=== PATIENT | male | born 1940 | race Caucasian/White ===

== ENCOUNTER → 2018-04-09 | Outpatient (CLI) | payer MEDICARE, OTHER ==
[~2018-04-09] MED LIST: AC500T PO; ATN50T; CHLO5CAP3 PO; LSNP20T; OLME40TA14 PO; PRX20T; RNT150T; SMV20T PO; UBID100C17 PO; VIT1TABL93 PO; [UNRECOGNIZED DRUG - OTHER] OU
--- NOTE | 2018-04-09 15:59 | Diagnostic Imaging Report ---
INDICATION: Posterior neck pain. TIME OF EXAM: 2:01 PM FINDINGS: Minimal anterolisthesis of C3 on C4 and C4 on C5 as well as C5 on C6 is noted. There is significant degenerative disc disease at C5-C6, C6-C7 and C7-T1 levels with disc space narrowing and marginal spurring. Prevertebral tissues are normal. Odontoid appears intact. No fractures are seen. There is multilevel facet arthropathy. IMPRESSION: Cervical spondylosis and listhesis. No acute bony abnormality is detected. Dictated by: Dictated on workstation # [id number]
== END ==
LOC: RAD 13:21
PROVIDERS: ATTEND Internal Medicine
DX: M47.812 Spondylosis without myelopathy or radiculopathy, cervical region (principal); M41.82 Other forms of scoliosis, cervical region; M99.01 Segmental and somatic dysfunction of cervical region
CPT/HCPCS: 72040

== ENCOUNTER → 2018-04-16 | Outpatient (CLI) | payer MEDICARE, OTHER ==
--- NOTE | 2018-04-16 08:00 | Diagnostic Imaging Report ---
PROCEDURE: MR imaging cervical spine without contrast. TECHNIQUE: Multiplanar, multisequence MR imaging of the cervical spine was performed without contrast. INDICATION: Neck pain. No known injury. COMPARISON: Cervical spine radiographs 04/09/2018. FINDINGS: Bone marrow signal is otherwise unremarkable. No abnormal signal in the cervical spinal cord. The visualized paravertebral soft tissues are unremarkable. C2-C3: Uncovertebral facet arthropathy result in mild bilateral neural foraminal narrowing. No spinal canal narrowing. C3-C4: Posterior disc osteophyte complex and ligamentous hypertrophy results in mild spinal canal narrowing. Uncovertebral facet arthropathy result in advanced right and moderate left neural foraminal narrowing. C4-C5: No substantial spinal canal narrowing. Uncovertebral facet arthropathy result in advanced right and moderate left neural foraminal narrowing. C5-C6: Posterior disc osteophyte complex results in mild spinal canal narrowing. Uncovertebral facet arthropathy result in moderate right and mild left neural foraminal narrowing. C6-C7: Posterior disc ossified complex, asymmetric to the left, results in moderate to advanced spinal canal narrowing where there is flattening of the ventral left cervical cord. There is advanced left and moderate right neural foraminal narrowing. C7-T1: Posterior disc ossified complex results in moderate spinal canal narrowing. There is advanced left and moderate right neural foraminal narrowing. IMPRESSION: 1. Spondylotic changes result in multilevel spinal canal narrowing which is greatest at C6-C7. Additional levels detailed above. No abnormal signal in the cervical spinal cord. 2. Diffuse moderate and advanced neural foraminal narrowing as above. 3. No acute osseous findings. Dictated by: Dictated on workstation # [id number]
== END ==
LOC: RAD 06:55
PROVIDERS: ATTEND Internal Medicine
DX: M48.02 Spinal stenosis, cervical region (principal); M48.03 Spinal stenosis, cervicothoracic region; M47.812 Spondylosis without myelopathy or radiculopathy, cervical region; M47.813 Spondylosis without myelopathy or radiculopathy, cervicothoracic region
CPT/HCPCS: 72141

== ENCOUNTER → 2018-05-22 | Outpatient (CLI) | payer MEDICARE, OTHER | LOC: LABNPT 14:00 | PROVIDERS: ATTEND Otolaryngology Otolaryngology/Facial Plastic Surgery | DX: J31.2 Chronic pharyngitis (principal) | CPT/HCPCS: 87070 ==

== ENCOUNTER → 2018-05-26 | Outpatient (CLI) | payer MEDICARE, OTHER ==
[2018-05-26 09:26] LABS: CREATININE SERUM 1.34 MG/DL (0.60-1.30)
== END ==
LOC: RAD 09:00
PROVIDERS: ATTEND Otolaryngology Otolaryngology/Facial Plastic Surgery
DX: J31.2 Chronic pharyngitis (principal)
CPT/HCPCS: 36415; 82565; 84520

== ENCOUNTER 2018-05-27 10:30 | Outpatient (RCR) | payer MEDICARE, OTHER | END 2018-05-28 15:28 | disposition home or self-care (01) | PROVIDERS: ATTEND Internal Medicine | DX: M47.812 Spondylosis without myelopathy or radiculopathy, cervical region (principal) ==

== ENCOUNTER → 2018-05-28 | Outpatient (CLI) | payer MEDICARE, OTHER ==
[2018-05-28] MEDS: IOHEXOL 350 MG/ML 100 ML (OMNIPAQUE 350) VIAL IV ONE (08:04)
[2018-05-28] MEDS: NS 250 ML (IVPB) BAG IV ONE (08:04)
--- NOTE | 2018-05-28 12:19 | Diagnostic Imaging Report ---
Clinical indication: Patient with sore throat for 3 months. Patient had left side cyst removed. Exam: Axial CT scan of the neck soft tissue performed with 75 cc of Omnipaque 350 IV contrast. Sagittal and coronal reformatted images were created. Comparison: MRI of the cervical spine without contrast dated 04/16/2018. Findings: There is a 1.1 cm x 0.4 cm x 1.8 cm (AP x Trans x CC) circumscribed fluid density area which is seen posteriorly and lateral to the region of the vallecula and in the left lateral preepiglottic fat region. This area is seen medial to the hyoid bone. There is no adjacent fat stranding or adjacent bony erosive process. Otherwise, the nasopharynx, oropharynx, hypopharynx, and laryngeal soft tissue structures are otherwise unremarkable. The visualized portion of the oral cavity, tongue, sublingual space, and submandibular regions are unremarkable. There is fatty replacement and atrophy of the bilateral parotid glands. Submandibular glands are unremarkable. Thyroid gland is unremarkable. There is no lymphadenopathy. Visualized portion of the neck vascular structures are grossly unremarkable. The visualized portion of intracranial structures, orbits and paranasal sinuses show no significant abnormality. The visualized upper lung metzger are clear. There is multilevel cervical spine degenerative disease with hypertrophic spurs suggestion that diffuse disc bulges with severe loss of intervertebral disc height at the C6-C7 and C7-T1 levels. There are bilateral uncinate spurs and posterior disc spurs which cause moderate to severe bilateral neural foramen narrowing. There is at least mild to moderate central canal narrowing. There is kyphosis of the brain cervical spine posture. Impression: 1: There is a 1.1 cm circumscribed fluid collection which is within the left side of the supraglottic laryngeal soft tissue which is just lateral to the left vallecula and medial to the hyoid bone. This may represent a vallecular cyst. Residual infectious or inflammatory fluid may be present, but this does not appear to represent an abscess as there is no adjacent fat stranding or rim enhancement. A fluid-filled laryngocele is suspected to be less likely. Lymphangioma also suspected to be less likely. This cystic area causes no significant encroachment upon adjacent. This area was not imaged on the prior MRI of the cervical spine. This area should also be correlated with the area of previous left neck cyst which was removed. 2: Fatty replacement and atrophy of the bilateral parotid glands. 3: Severe cervical spine degenerative disease. 4: The remainder of the neck CT exam is unremarkable for patient's age. Dictated by: Dictated on workstation # [id number]
== END ==
LOC: RAD 07:15
PROVIDERS: ATTEND Otolaryngology Otolaryngology/Facial Plastic Surgery
DX: J38.7 Other diseases of larynx (principal); K11.0 Atrophy of salivary gland; M47.812 Spondylosis without myelopathy or radiculopathy, cervical region; J02.9 Acute pharyngitis, unspecified
CPT/HCPCS: 70491

== ENCOUNTER → 2018-12-20 | Outpatient (CLI) | payer MEDICARE, OTHER ==
[~2018-12-20] VITALS: Ht 177.8 cm; Wt 97.1 kg
[~2018-12-20] MED LIST changes: +CATHETER FLUSH 10 ML SYR IV PRN; +REGADENOSON 0.4 MG/5 ML SYR (LEXISCAN) IV ONE
[2018-12-20 07:54] VITALS: BP 147/90
[2018-12-20 08:21] VITALS: BP 140/83
--- NOTE | 2018-12-23 03:02 | STRESS TEST ---
DATE OF SERVICE: 12/20/2018 NUCLEAR MYOVIEW REPORT REFERRING PHYSICIAN: Dr. Messina. INDICATION: Hypertension. In summary, the patient was injected with 10.54 mCi of technetium-99 Myoview and the resting images were obtained with peak stress level, a 33.0 mCi of technetium-99 Myoview were injected and the stress images were acquired. The test was supervised by Dr. Messina, the resting and stress images were acquired and reviewed in the short axis, horizontal long axis, and vertical long axis views. Review of the images showed diaphragmatic attenuation with typical male pattern, decreased uptake at the inferoapical segment, which is fixed with no significant ischemia. SSS is 4, SDS 1, TID value 1.12. On the gated images, the left ventricle appeared to be normal size with normal contractility. Calculated ejection fraction is 58%. CONCLUSION: 1. Typical male pattern with diaphragmatic attenuation with no significant ischemia or infarction on SPECT images. 2. Normal left ventricular size with normal contractility. Calculated ejection fraction is 58%. Job ID: [id number] DocumentID: [id number] Dictated Date: 12/22/2018 21:10:21 Work Order Clerk Date: 12/23/2018 03:01:20 Dictated By: JOSE DANIEL ORTEGA MD
== END ==
LOC: CARD 06:35
PROVIDERS: ATTEND Internal Medicine
DX: R53.83 Other fatigue (principal)
CPT/HCPCS: 78452; 93017

== ENCOUNTER → 2019-05-24 | Outpatient (CLI) | payer MEDICARE, OTHER ==
[~2019-05-24] MED LIST changes: -CATHETER FLUSH 10 ML SYR IV PRN; -REGADENOSON 0.4 MG/5 ML SYR (LEXISCAN) IV ONE
--- NOTE | 2019-05-24 13:59 | Diagnostic Imaging Report ---
PROCEDURE: CT neck soft tissue with contrast. TECHNIQUE: Multiple contiguous axial images were obtained through the neck after the administration of contrast. Auto Exposure Controls were utilized during the CT exam to meet ALARA standards for radiation dose reduction. INDICATION: Laryngeal mass. COMPARISON: Study compared with exam of 05/28/2018. FINDINGS: Ovoid nodule in the left larynx, supraglottic, deep to the left hyoid bone and at the base of the left aryepiglottic fold measured 1 cm x 0.4 cm, unchanged from prior, it is relatively low in density and vallecular cyst is felt most likely. Again, it is unchanged. No new or aggressive laryngeal lesion. The vocal folds are unremarkable. Prevertebral and retropharyngeal spaces are normal. The nasopharynx and oropharynx are unremarkable. The hypopharynx is unremarkable. No adenopathy. Parotid and submandibular glands are unremarkable. Thyroid is nonfocal. IMPRESSION: Elongated low-density left vallecular nodule, favors a cyst, unchanged from the study of one year earlier. No new or suspicious mass. No lymphadenopathy. Dictated by: Dictated on workstation # [id number]
== END ==
LOC: RAD 07:43
PROVIDERS: ATTEND Otolaryngology
DX: D38.0 Neoplasm of uncertain behavior of larynx (principal)
CPT/HCPCS: 70491

== ENCOUNTER → 2019-05-24 | Outpatient (CLI) | payer MEDICARE, OTHER ==
[2019-05-24 08:28] LABS: CREATININE SERUM 1.37 MG/DL (0.60-1.30)
== END ==
LOC: LAB 07:48
PROVIDERS: ATTEND Otolaryngology
DX: R22.1 Localized swelling, mass and lump, neck (principal)
CPT/HCPCS: 36415; 82565; 84520

== ENCOUNTER 2022-02-07 22:30 | Emergency (ER) | payer MEDICARE, OTHER ==
[~2022-02-07] VITALS: Ht 177 cm; Wt 95.2 kg
[2022-02-07 22:40] VITALS: BP 199/105
[2022-02-07 23:28] LABS: HEMOGLOBIN 14.3 g/dL (13.3-17.7); LYMPHOCYTES # (AUTO) 1.4 10^3/uL (1.0-4.0); MEAN CORPUSCULAR HEMOGLOBIN 33 pg (25-34)
[2022-02-07 23:30] LABS: BASOPHILS % (AUTO) 1 % (0-10); EOSINOPHILS # (AUTO) 0.3 10^3/uL (0.0-0.3); EOSINOPHILS % (AUTO) 8 % (0-10); HEMATOCRIT 41 % (40-54); LYMPHOCYTES % (AUTO) 32 % (12-44); MEAN CORPUSCULAR HGB CONC 35 g/dL (32-36); MEAN CORPUSCULAR VOLUME 94 fL (80-99); MEAN PLATELET VOLUME 9.9 fL (9.0-12.2); MONOCYTES # (AUTO) 0.4 10^3/uL (0.0-1.0); MONOCYTES % (AUTO) 10 % (0-12); NEUTROPHILS # (AUTO) 2.1 10^3/uL (1.8-7.8); NEUTROPHILS % (AUTO) 50 % (42-75); PLATELET COUNT 123 10^3/uL (130-400); WHITE BLOOD COUNT 4.3 10^3/uL (4.3-11.0)
[2022-02-07 23:34] LABS: POTASSIUM 3.9 MMOL/L (3.6-5.0)
[2022-02-07 23:35] LABS: CALCIUM 9.8 MG/DL (8.5-10.1)
[2022-02-07 23:40] LABS: CREATININE SERUM 1.23 MG/DL (0.60-1.30)
--- NOTE | 2022-02-08 20:22 | ED Cardiac General ---
History of Present Illness General Chief Complaint: Cardiac/General Problems Stated Complaint: HIGH BP 188/101 Nursing Triage Note: Pt arrives from home w/ c/o elevated blood pressure. Ambulatory to room, and attached to NIBP and SpO2 monitors. Source: patient Exam Limitations: no limitations History of Present Illness Date Seen by Provider: Feb 07, 2022 Time Seen by Provider: 23:21 Initial Comments This patient was not interviewed or examined by this provider. Orders were placed after review of chief complaint and discussion with the triaging nurse. Due to traumas requiring immediate attention, patient cannot be immediately seen. Blood pressure was trending down to an acceptable level and he elected to leave without being seen. Labs were reviewed and were unremarkable. Allergies and Home Medications Allergies Coded Allergies: Iodinated Contrast Media - IV Dye (Verified Allergy, Unknown, 06/11/07) Thiopental (Verified Allergy, Unknown, 06/11/07) cefazolin (Verified Allergy, Unknown, 06/11/07) Patient Home Medication List Home Medication List Reviewed: Yes Acetaminophen (Tylenol) 500 Mg Tablet, 500 MG PO DAILY, (Reported) Entered as Reported by: MARTIN EASON on 02/16/131535 Chlordiazepoxide Hcl (Librium) 5 Mg Cap, 1 EACH PO BID, (Reported) Entered as Reported by: MARTIN EASON on 02/16/13 153 Olmesartan Medoxomil (Benicar) 40 Mg Tablet, 1 TAB PO DAILY, (Reported) Entered as Reported by: MARTIN EASON on 02/16/13 153 Paroxetine Hcl (Paxil 20 Mg) 20 Mg Tablet, (Reported) Entered as Reported by: JAKI DUMONT on 06/11/07 165 Ranitidine Hcl (Zantac 150 Mg) 150 Mg Tablet, (Reported) Entered as Reported by: JAKI DUMONT on 06/11/07 165 Simvastatin (Zocor) 20 Mg Tab, 20 MG PO DAILY, (Reported) Entered as Reported by: MARTIN EASON on 02/16/131535 Ubidecarenone (Coq-10) 100 Mg Capsule, 100 MG PO PER PACKAGE INSTR, (Reported) Entered as Reported by: MARTIN EASON on 02/16/131535 Vit D3/Folic Acid/B2/B6/B12 (Folgard Tablet) 1 Each Tablet, 1 EACH PO DAILY, (Reported) Entered as Reported by: MARTIN EASON on 02/16/131535 [Rastasis] , 2 DROPS OU BID, (Reported) Entered as Reported by: MARTIN EASON on 02/16/131535 Review of Systems Review of Systems Constitutional: no symptoms reported Cardiovascular: See HPI Past Tjjswoy-Uvllwp-Lowugf Hx Patient Social History Tobacco Use?: No Use of E-Cig and/or Vaping dev: No Substance use?: No Alcohol Use?: Yes Alcohol type: Hard Liquor Alcohol Frequency: Couple times a week Pt feels they are or have been: No Immunizations Up To Date First/Initial COVID19 Vaccinat: 2020 Second COVID19 Vaccination Chuy: 2020 Past Medical History Cardiac: Yes Hypertension Reproductive Disorders: No Physical Exam Vital Signs Vital Signs - First Documented 02/07/22 22:40 Temp 36.9 Pulse 55 Resp 20 B/P (MAP) 199/105 (136) Pulse Ox 97 O2 Delivery Room Air Capillary Refill : Less Than 3 Seconds Height, Weight, BMI Height: 5'10.00" Weight: 214lbs. 0.0oz. 97.470786ip; 30.00 BMI Method: General Appearance: Other (Patient was not interviewed or examined. Left without being seen.) Progress/Results/Core Measures Results/Orders Lab Results Laboratory Tests Test 02/07/22 22:55 Range/Units White Blood Count 4.3 4.3-11.0 10^3/uL Red Blood Count 4.40 4.30-5.52 10^6/uL Hemoglobin 14.3 13.3-17.7 g/dL Hematocrit 41 40-54 % Mean Corpuscular Volume 94 80-99 fL Mean Corpuscular Hemoglobin 33 25-34 pg Mean Corpuscular Hemoglobin Concent 35 32-36 g/dL Red Cell Distribution Width 12.7 10.0-14.5 % Platelet Count 123 L 130-400 10^3/uL Mean Platelet Volume 9.9 9.0-12.2 fL Immature Granulocyte % (Auto) 0 % Neutrophils (%) (Auto) 50 42-75 % Lymphocytes (%) (Auto) 32 12-44 % Monocytes (%) (Auto) 10 0-12 % Eosinophils (%) (Auto) 8 0-10 % Basophils (%) (Auto) 1 0-10 % Neutrophils # (Auto) 2.1 1.8-7.8 10^3/uL Lymphocytes # (Auto) 1.4 1.0-4.0 10^3/uL Monocytes # (Auto) 0.4 0.0-1.0 10^3/uL Eosinophils # (Auto) 0.3 0.0-0.3 10^3/uL Basophils # (Auto) 0.0 0.0-0.1 10^3/uL Immature Granulocyte # (Auto) 0.0 0.0-0.1 10^3/uL Percent Immature Platelet Fraction 2.9 0.0-7.6 % Sodium Level 139 135-145 MMOL/L Potassium Level 3.9 3.6-5.0 MMOL/L Chloride Level 106 98-107 MMOL/L Carbon Dioxide Level 23 21-32 MMOL/L Anion Gap 10 5-14 MMOL/L Blood Urea Nitrogen 24 H 7-18 MG/DL Creatinine 1.23 0.60-1.30 MG/DL Estimat Glomerular Filtration Rate 59 BUN/Creatinine Ratio 20 Glucose Level 108 H 70-105 MG/DL Calcium Level 9.8 8.5-10.1 MG/DL B-Type Natriuretic Peptide 17.9 <100.0 PG/ML My Orders Orders - FERNANDO LAW MD Basic Metabolic Panel (02/07/22 23:21) Bnp [place] (02/07/22 23:21) Cbc With Automated Diff (02/07/22 23:21) Ed Iv/Invasive Line Start (02/07/22 23:21) Vital Signs/I&O 02/07/22 22:40 Temp 36.9 Pulse 55 Resp 20 B/P (MAP) 199/105 (136) Pulse Ox 97 O2 Delivery Room Air Blood Pressure Mean: 136 Departure Impression Primary Impression: Episode of hypertension Additional Impression: Patient left without being seen Disposition: AGAINST MEDICAL ADVICE Condition: Against Medical Advice Departure-Patient Inst. Referrals: SHAAN CHI DO (PCP) Primary Care Physician Copy Copies To 1: SHAAN CHI JOSHUA T MD Feb 08, 2022 20:22
== END 2022-02-08 00:45 | disposition left against medical advice (07) ==
LOC: EDUNIT# 22:30 → ER 22:31
DX: I10 Essential (primary) hypertension (principal)
CPT/HCPCS: 36415; 80048; 83880; 85025

== ENCOUNTER → 2022-06-10 | Outpatient (CLI) | payer MEDICARE, OTHER ==
--- NOTE | 2022-06-10 22:38 | Diagnostic Imaging Report ---
PROCEDURE: US carotid duplex, bilateral. TECHNIQUE: Multiple real-time grayscale images were obtained over the carotid arteries in various projections, bilaterally. Additional spectral analysis and color Doppler duplex images were also obtained. INDICATION: 82-year-old male, carotid bruit. Hypertension. FINDINGS: Color images demonstrate scattered plaque-like formation to be present throughout the bilateral common carotid artery, carotid bulb as well as internal and external carotid arteries. There are no abnormally elevated velocity or findings to suggest a hemodynamically significant stenosis. External carotid arteries are patent. Vertebral artery is antegrade directional flow. There is atypical appearance about the Doppler waveform of the right vertebral artery with lack of abnormal pulsation and generalized continuous flow. Parameters based on the consensus panel Mo-Scale and Doppler ultrasound criteria published July 2003, Radiology, Volume 229. DOPPLER (peak systolic velocity M/S Right Left CCA 0.76 0.70 ICA Proximal 0.78 0.66 ICA Mid 0.58 0.54 ICA Distal 0.62 0.53 RATIO 1.02 0.95 ECA 0.56 0.64 VERT 0.11 0.42 IMPRESSION: 1. Scattered atherosclerotic plaque about the bilateral common carotid arteries, carotid bulbs as well as internal and external carotid arteries. Dictated by: Dictated on workstation # [id number]
== END ==
LOC: RAD 08:13
PROVIDERS: ATTEND Internal Medicine
DX: I65.23 Occlusion and stenosis of bilateral carotid arteries (principal); I10 Essential (primary) hypertension
CPT/HCPCS: 93880

== ENCOUNTER 2022-07-30 05:43 | Outpatient (CLI) | payer MEDICARE, OTHER ==
[~2022-07-30] VITALS: Ht 180.3 cm; Wt 91.0 kg
[2022-07-30] MEDS ORDERED: CHOL20002 PO (09:59)
[2022-07-30] MEDS ORDERED: METO-333 PO (09:59)
[2022-07-30] MEDS ORDERED: SIMV10TA26 PO (09:59)
[2022-07-30] MEDS ORDERED: DOXA4TAB2 PO (09:59)
[2022-07-30] MEDS ORDERED: UBID100C44 PO (09:59)
[2022-07-30] MEDS ORDERED: LOSA100T57 PO (09:59)
[2022-07-30] MEDS ORDERED: PARO30TA3 PO (09:59)
[2022-07-30] MEDS ORDERED: ASCO250T16 PO (09:59)
== END 2022-07-30 12:18 | disposition home or self-care (01) ==
LOC: PREOP 05:43
PROVIDERS: ATTEND Specialist
DX: Z01.818 Encounter for other preprocedural examination (principal)

== ENCOUNTER 2022-08-01 09:57 | Day surgery (SDC) | payer MEDICARE, OTHER ==
[~2022-08-01] VITALS: Ht 180 cm; Wt 91.0 kg
[~2022-08-01 09:57] MED LIST changes: +ASCO250T16 PO; +CHOL20002 PO; +DOXA4TAB2 PO; +LOSA100T57 PO; +METO-333 PO; +PARO30TA3 PO; +SIMV10TA26 PO; +UBID100C44 PO
[2022-08-01] MEDS: TETRACAINE 0.5% OPHTH SOLN 4 ML BTL (SINGLE DOSE ONLY) OU PRN ×4 (10:13→10:28)
[2022-08-01 10:14] VITALS: BP 166/97
[2022-08-01] MEDS ORDERED: POVIDONE (BETADINE) OPHTH SOLN 5% 30 ML OP ONE (10:15)
[2022-08-01] MEDS ORDERED: MOXIFLOXACIN OPHTH SOLN 5 MG/ML 0.3 ML SYRINGE OP ONE (10:15)
[2022-08-01] MEDS ORDERED: TIMOLOL 0.5% (CATARACTS) 0.3 ML BTL OU PRN (10:15)
[2022-08-01] MEDS: TROPICAMIDE 1% OPH SOLN (MYDRIACYL) 15 ML BTL OP SCH ×3 (10:20→10:29)
[2022-08-01] MEDS: PHENYLEPHRINE 10% OPHTH (NEO-SYN) 5 ML BTL OU SCH ×3 (10:20→10:29)
[2022-08-01] MEDS ORDERED: MIDAZOLAM 2 MG/2 ML (VERSED) VIAL ONE (10:56)
--- NOTE | 2022-08-01 11:00 | Ophthalmologist Pre-Op Note ---
Pre-Operative Progress Note H&P Reviewed The H&P was reviewed, patient examined and no changes noted. Date H&P Reviewed: Aug 01, 2022 Time H&P Reviewed: 11:00 Pre-Op Dx Cataract, Right Eye MARYLU DECKER MD Aug 01, 2022 11:00
--- NOTE | 2022-08-01 11:20 | Ophthalmology Operative Report ---
Cataract removal/placement IOL PREOPERATIVE DIAGNOSIS: Cataract Right Eye POSTOPERATIVE DIAGNOSIS: Cataract Right Eye PROCEDURE: Cataract removal and placement of posterior chamber implant, right eye SURGEON: Lalito Decker ANESTHESIA: Topical with sedation COMPLICATIONS: None ESTIMATED BLOOD LOSS: Minimal DESCRIPTION OF PROCEDURE: After proper informed consent was obtained, the patient, a 82 male, was taken to the Operating Room and the right eye was anesthetized with tetracaine. The right eye was then prepped and draped in the usual manner. A wire lid speculum was placed. A paracentesis was made at the left hand position. Preservative free lidocaine was injected into the anterior chamber followed by viscoelastic. A clear corneal incision was made in the temporal position. A capsulorrhexis was preformed and the central nuclear and cortical material were removed. The posterior capsule was polished and Darrel 22.5 AU00T0 IOL was placed into the capsular bag. The residual viscoelastic was aspirated and balanced saline solution was injected into the anterior chamber. Moxifloxacin was injected into the anterior chamber. The wound was checked and found to be water tight. The patient tolerated the procedure well without complications. LALITO DECKER MD Aug 01, 2022 11:20
[2022-08-01 11:25] VITALS: BP 128/78
--- NOTE | 2022-08-01 12:41 | Anesthesia-General Post-Op ---
MAC Patient Condition Mental Status/LOC: Same as Preop Cardiovascular: Satisfactory Nausea/Vomiting: Absent Respiratory: Satisfactory Pain: Controlled Complications: Absent Post Op Complications Complications None Follow Up Care/Instructions Patient Instructions None needed. Anesthesiology Discharge Order Discharge Order Patient was doing well after the procedure with no complaints, stable vital signs, no apparent adverse anesthesia problems. No complications reported per nursing. LUIS PERSAUD DO Aug 01, 2022 12:41
[2022-08-01] MEDS ORDERED: acetaZOLAMIDE ER 500 MG CAP (DIAMOX SEQUELS) PO ONE (13:00)
== END 2022-08-01 11:30 | disposition home or self-care (01) ==
LOC: SDC 09:57
PROVIDERS: ATTEND Specialist
DX: H25.9 Unspecified age-related cataract (principal)
CPT/HCPCS: 66984; V2632

== ENCOUNTER 2022-08-08 05:35 | Outpatient (CLI) | payer MEDICARE, OTHER ==
[~2022-08-08] VITALS: Ht 180 cm; Wt 91.0 kg
== END 2022-08-12 15:13 | disposition home or self-care (01) ==
LOC: PREOP 05:35
PROVIDERS: ATTEND Specialist
DX: Z01.818 Encounter for other preprocedural examination (principal)

== ENCOUNTER 2022-08-15 10:30 | Day surgery (SDC) | payer MEDICARE, OTHER ==
[~2022-08-15] VITALS: Ht 180 cm; Wt 91.0 kg
[2022-08-15 10:30] VITALS: BP 160/91
[2022-08-15] MEDS ORDERED: MIDAZOLAM 2 MG/2 ML (VERSED) VIAL ONE (10:38)
[2022-08-15] MEDS: TETRACAINE 0.5% OPHTH SOLN 4 ML BTL (SINGLE DOSE ONLY) OU PRN ×4 (10:40→10:55)
[2022-08-15] MEDS: TROPICAMIDE 1% OPH SOLN (MYDRIACYL) 15 ML BTL OP SCH ×3 (10:44→10:55)
[2022-08-15] MEDS ORDERED: TIMOLOL 0.5% (CATARACTS) 0.3 ML BTL OU PRN (10:45)
[2022-08-15] MEDS: PHENYLEPHRINE 10% OPHTH (NEO-SYN) 5 ML BTL OU SCH ×3 (10:45→10:55)
[2022-08-15] MEDS ORDERED: MOXIFLOXACIN OPHTH SOLN 5 MG/ML 0.3 ML SYRINGE OP ONE (10:45)
[2022-08-15] MEDS ORDERED: POVIDONE (BETADINE) OPHTH SOLN 5% 30 ML OP ONE (10:45)
[2022-08-15] MEDS ORDERED: acetaZOLAMIDE ER 500 MG CAP (DIAMOX SEQUELS) PO ONE (11:15)
--- NOTE | 2022-08-15 11:21 | Ophthalmologist Pre-Op Note ---
Pre-Operative Progress Note H&P Reviewed The H&P was reviewed, patient examined and no changes noted. Date H&P Reviewed: Aug 15, 2022 Time H&P Reviewed: 11:21 Pre-Op Dx Cataract, Left Eye MARYLU DECKER MD Aug 15, 2022 11:21
--- NOTE | 2022-08-15 11:40 | Ophthalmology Operative Report ---
Cataract removal/placement IOL PREOPERATIVE DIAGNOSIS: Cataract Left Eye POSTOPERATIVE DIAGNOSIS: Cataract Left Eye PROCEDURE: Cataract removal and placement of posterior chamber implant, left eye SURGEON: Lalito Decker ANESTHESIA: Topical with sedation COMPLICATIONS: None ESTIMATED BLOOD LOSS: Minimal DESCRIPTION OF PROCEDURE: After proper informed consent was obtained, the patient, a 82 male, was taken to the Operating Room and the left eye was anesthetized with tetracaine. The left eye was then prepped and draped in the usual manner. A wire lid speculum was placed. A paracentesis was made at the left hand position. Preservative free lidocaine was injected into the anterior chamber followed by viscoelastic. A clear corneal incision was made in the temporal position. A capsulorrhexis was preformed and the central nuclear and cortical material were removed. The posterior capsule was polished and an Darrel 22.0 AU00T0 was placed into the capsular bag. The residual viscoelastic was aspirated and balanced saline solution was injected into the anterior chamber. Moxifloxacin was injected into the anterior chamber. The wound was checked and found to be water tight. The patient tolerated the procedure well without complications. LALITO DECKER MD Aug 15, 2022 11:40
[2022-08-15 11:45] VITALS: BP 146/88
--- NOTE | 2022-08-15 13:56 | Anesthesia-General Post-Op ---
MAC Patient Condition Mental Status/LOC: Same as Preop Cardiovascular: Satisfactory Nausea/Vomiting: Absent Respiratory: Satisfactory Pain: Controlled Complications: Absent Post Op Complications Complications None Follow Up Care/Instructions Patient Instructions None needed. Anesthesiology Discharge Order Discharge Order Patient is doing well, no complaints, stable vital signs, no apparent adverse anesthesia problems. No complications reported per nursing. ADELE GAY CRNA Aug 15, 2022 13:56
== END 2022-08-15 11:46 | disposition home or self-care (01) ==
LOC: SDC 10:30
PROVIDERS: ATTEND Specialist
DX: H25.9 Unspecified age-related cataract (principal)
CPT/HCPCS: 66984; V2632